=== PATIENT | female | born 1950 | race Two or more races ===

== ENCOUNTER 2021-04-15 18:01 | Emergency (ER) | payer OTHER ==
[~2021-04-15] VITALS: Ht 157.5 cm; Wt 69.9 kg
[2021-04-15] MEDS ORDERED: GABAPENTIN300 M2 PO (18:42)
[2021-04-15] MEDS ORDERED: PREDNISONE20 M1 PO (18:43)
[2021-04-15] MEDS ORDERED: MONTELUKAST SOD10 MG PO (18:43)
== END 2021-04-15 19:21 | disposition home or self-care (01) ==
LOC: ER 18:01
DX: M76.892 Other specified enthesopathies of left lower limb, excluding foot (principal)

== ENCOUNTER 2021-05-16 18:19 | Emergency (ER) | payer OTHER ==
[~2021-05-16] VITALS: Ht 157.5 cm; Wt 74.4 kg
[~2021-05-16 18:19] MED LIST: GABAPENTIN300 M2 PO; MONTELUKAST SOD10 MG PO; PREDNISONE20 M1 PO
[2021-05-17] MEDS ORDERED: PEPCID40 MG PO (02:35)
[2021-05-17] MEDS ORDERED: ZOFRAN4 MG PO (02:35)
[2021-05-17] MEDS ORDERED: INTESTINEX680 M1 PO (02:35)
[2021-05-17] MEDS ORDERED: TYLENOL EXTRA500 MG PO ×2 (02:36)
== END 2021-05-17 08:17 | disposition home or self-care (01) ==
LOC: ER 18:19
DX: K52.9 Noninfective gastroenteritis and colitis, unspecified (principal)

== ENCOUNTER 2022-01-22 13:38 | Emergency (ER) | payer OTHER ==
[~2022-01-22] VITALS: Ht 157.5 cm; Wt 74.4 kg
[~2022-01-22 13:38] MED LIST changes: +INTESTINEX680 M1 PO; +PEPCID40 MG PO; +TYLENOL EXTRA500 MG PO; +ZOFRAN4 MG PO
[2022-01-22] MEDS ORDERED: ATORVASTATIN CA20 MG PO (14:20)
[2022-01-22] MEDS ORDERED: ESCITALOPRAM OX20 MG PO (14:20)
[2022-01-22] MEDS ORDERED: RESTORIL30 MG PO (14:21)
[2022-01-22] MEDS ORDERED: DONEPEZIL HCL5 MG PO (14:21)
== END 2022-01-22 19:02 | disposition home or self-care (01) ==
LOC: ER 13:38
DX: U07.1 COVID-19 (principal)

== ENCOUNTER 2022-05-08 18:36 | Emergency (ER) | payer OTHER ==
[~2022-05-08] VITALS: Ht 157.5 cm; Wt 75.7 kg
[~2022-05-08 18:36] MED LIST changes: +ATORVASTATIN CA20 MG PO; +DONEPEZIL HCL5 MG PO; +ESCITALOPRAM OX20 MG PO; +RESTORIL30 MG PO
== END 2022-05-08 19:43 | disposition home or self-care (01) ==
LOC: ER 18:36
DX: M54.9 Dorsalgia, unspecified (principal)

== ENCOUNTER 2022-08-01 13:25 | Emergency (ER) | payer OTHER ==
[~2022-08-01] VITALS: Ht 157.5 cm; Wt 73.9 kg
[2022-08-01] MEDS ORDERED: LEVSIN/SL0.125 MG SL (19:10)
[2022-08-01] MEDS ORDERED: PEPCID AC20 MG PO (19:10)
[2022-08-01] MEDS ORDERED: BACTRIM DS TAB1 EACH PO (19:10)
== END 2022-08-01 19:40 | disposition home or self-care (01) ==
LOC: ER 13:25
DX: K52.9 Noninfective gastroenteritis and colitis, unspecified (principal); J45.909 Unspecified asthma, uncomplicated; N39.0 Urinary tract infection, site not specified

== ENCOUNTER 2022-08-18 14:14 | Emergency (ER) | payer OTHER ==
[~2022-08-18] VITALS: Ht 157.5 cm; Wt 72.6 kg
[~2022-08-18 14:14] MED LIST changes: +BACTRIM DS TAB1 EACH PO; +LEVSIN/SL0.125 MG SL; +PEPCID AC20 MG PO
[2022-08-18] MEDS ORDERED: DUI500 PO (19:01)
== END 2022-08-18 19:11 | disposition home or self-care (01) ==
LOC: ER 14:14
DX: L03.113 Cellulitis of right upper limb (principal); M25.432 Effusion, left wrist; M11.232 Other chondrocalcinosis, left wrist

== ENCOUNTER 2022-11-06 15:14 | Emergency (ER) | payer OTHER ==
[~2022-11-06] VITALS: Ht 157.5 cm; Wt 74.4 kg
[~2022-11-06 15:14] MED LIST changes: +DUI500 PO
== END 2022-11-06 18:56 | disposition home or self-care (01) ==
LOC: ER 15:14
DX: J02.9 Acute pharyngitis, unspecified (principal); Z20.822 Contact with and (suspected) exposure to COVID-19